=== PATIENT | female | born 1970 | race African-American/Black ===

== ENCOUNTER 2016-06-15 03:45 | Emergency (ER) | payer OTHER, MEDICAID ==
[~2016-06-15] VITALS: Ht 162.6 cm; Wt 100.0 kg
[~2016-06-15 03:45] MED LIST: BENZ100 PO; BENZ1TAB PO; GLIP5 PO; LATU40TA PO; LEVA750T PO; LEXA20TA PO; METF1000 PO; NAPR500 PO; NORV10TA PO; OSEL75 PO; PRIN5TAB PO; SAXA5TAB2 PO
[2016-06-15 03:47] VITALS: BP 182/86; PULSE 98; RESP 18; TEMP 98.2; O2SAT 98
[2016-06-15] MEDS ORDERED: LISI10TA3 PO (04:03)
[2016-06-15] MEDS ORDERED: ESCI20TA PO (04:03)
[2016-06-15] MEDS ORDERED: GLIP5TAB8 PO (04:04)
[2016-06-15] MEDS ORDERED: ONGL5TAB PO (04:04)
[2016-06-15] MEDS ORDERED: METF500T PO (04:04)
[2016-06-15] MEDS ORDERED: BENZ1TAB PO (04:05)
[2016-06-15] MEDS ORDERED: LURA40 PO (04:05)
[2016-06-15] MEDS ORDERED: AMOXICILLIN (TRIHYDRATE) 500 MG CAP PO ONE (04:45)
[2016-06-15] MEDS ORDERED: TETANUS/DIPHTHERIA TOXOID ADULT 0.5 ML VIAL IM ONE (04:45)
[2016-06-15] MEDS ORDERED: AMOX500T PO (04:49)
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
== END 2016-06-15 04:54 | disposition home or self-care (01) ==
LOC: NEPB 03:45
DX: S00.511A Abrasion of lip, initial encounter (principal); J02.9 Acute pharyngitis, unspecified; I10 Essential (primary) hypertension; E78.00 Pure hypercholesterolemia, unspecified; E11.9 Type 2 diabetes mellitus without complications; H91.92 Unspecified hearing loss, left ear; Z23 Encounter for immunization; Z79.84 Long term (current) use of oral hypoglycemic drugs; Z86.59 Personal history of other mental and behavioral disorders; Z87.39 Personal history of other diseases of the musculoskeletal system and connective tissue; V19.3XXA Pedal cyclist (driver) (passenger) injured in unspecified nontraffic accident, initial encounter; Y93.55 Activity, bike riding
CPT/HCPCS: 90471; 90714